=== PATIENT | female | born 1950 | race Caucasian/White ===

== ENCOUNTER 2018-05-13 01:11 | Outpatient (CLI) | payer BC, SELFPAY ==
[2018-05-13 11:41] LABS: ALT 19 U/L (12-78); AST 20 U/L (15-37); Albumin 3.9 g/dL (3.4-5.0); Alkaline Phosphatase 89 U/L (46-116); Anion Gap 6.8 mmol/L (3-11); BUN 12 mg/dL (7-18); Bilirubin, Total 0.4 mg/dL (0.2-1.0); CO2 30.2 mmol/L (21.0-32.0); CREATININE 0.95 mg/dL (0.55-1.02); Chloride 106 mmol/L (98-107); Cholesterol 208 mg/dL (50-200); Estimated GFR 58.85 (mL/min/1.73m2); Glucose 89 mg/dL (70-100); HDL Cholesterol 52 mg/dL (40-60); LDL CHOLESTEROL 139 mg/dL (<100); Potassium 4.9 mmol/L (3.5-5.1); Sodium 143 mmol/L (136-145); Total Protein 7.1 g/dL (6.4-8.2); Triglyceride 123 mg/dL (30-150)
== END 2018-05-13 01:31 ==
DX: I10 Essential (primary) hypertension (principal); E03.9 Hypothyroidism, unspecified; R03.0 Elevated blood-pressure reading, without diagnosis of hypertension; H81.09 Meniere's disease, unspecified ear; Z13.220 Encounter for screening for lipoid disorders
CPT/HCPCS: 36415; 80053; 80061; 83721

== ENCOUNTER 2018-05-19 01:40 | Outpatient (CLI) | payer BC, SELFPAY ==
--- NOTE | 2018-05-19 13:30 | DI.MAMMO_ITS ---
SYMPTOM/DIAGNOSIS: SCREENING, Z12.31 MAMMOGRAMS: Mammograms were interpreted according to the usual protocol including computer analysis with CAD system, tomosynthesis and C view imaging. Comparison is made with exams from [id number]. The breasts are composed of heterogeneously dense fibroglandular tissue. Breast density, Category C. No suspicious masses or suspicious microcalcifications are seen. There has been no significant change. IMPRESSION: Category 1, negative mammogram. Yearly screening mammography is recommended. [facility] ASSESSMENT OF FINDINGS: Negative. Category 1. Patient will receive a letter notifying them of these results. Bi-RADS category C. The breasts are heterogeneously dense, which may obscure small masses.
== END 2018-05-19 02:00 ==
DX: Z12.31 Encounter for screening mammogram for malignant neoplasm of breast (principal)
CPT/HCPCS: 77063; 77067

== ENCOUNTER 2019-05-19 09:38 | Outpatient (CLI) | payer BC, SELFPAY ==
[2019-05-19 13:16] LABS: ALT 27 U/L (14-59); AST 24 U/L (15-37); Alkaline Phosphatase 84 U/L (46-116); Anion Gap 8.1 mmol/L (3-11); BUN 16 mg/dL (7-18); Bilirubin, Total 0.6 mg/dL (0.2-1.0); CO2 28.9 mmol/L (21.0-32.0); CREATININE 0.89 mg/dL (0.55-1.02); Calculated LDL 124 mg/dL (<100); Chloride 103 mmol/L (98-107); Cholesterol 195 mg/dL (<200); Glucose 93 mg/dL (74-106); HDL Cholesterol 48 mg/dL (40-60); Potassium 4.7 mmol/L (3.5-5.1); Sodium 140 mmol/L (136-145); Triglyceride 119 mg/dL (<150)
== END 2019-05-19 09:58 ==
DX: I10 Essential (primary) hypertension (principal); F41.9 Anxiety disorder, unspecified; R10.13 Epigastric pain; R03.0 Elevated blood-pressure reading, without diagnosis of hypertension; C43.9 Malignant melanoma of skin, unspecified
CPT/HCPCS: 36415; 80053; 80061

== ENCOUNTER 2019-08-04 01:33 | Outpatient (CLI) | payer BC, SELFPAY ==
--- NOTE | 2019-08-04 12:55 | DI.MAMMO_ITS ---
EXAM: MG MAMMO SCREENING CLINICAL HISTORY: screening,z12.39 TECHNIQUE: Bilateral full field digital CC and MLO mammographic images were obtained with 3D tomosyn thesis and utilizing computer aided detection (CAD). COMPARISON: Available for comparison. FINDINGS: Masses/Architectural Distortion: None seen. Microcalcifications: No suspicious pleomorphic-type are seen. Skin Thickening/Nipple Retraction: None. IMPRESSION: 1. No significant interval change with no specific features of malignancy noted. 2. Unless there is more urgent need, screening mammography is recommended, as per [employer] guidelines. BI-RADS Category 1 - Negative Breast Density - Category B - Scattered areas of fibroglandular density A negative radiographic report should not delay biopsy if a dominant or clinically suspicious mass is present. Up to ten percent of cancers are not identified on mammography. A negative report may reinforce clinical impression. Adenosis and dense breasts may obscure an underlying neoplasm. False positive reports average 6 to 10%. Patient will receive a letter notifying them of these results.
== END 2019-08-04 01:53 ==
DX: Z12.31 Encounter for screening mammogram for malignant neoplasm of breast (principal)
CPT/HCPCS: 77063; 77067

== ENCOUNTER 2021-04-12 00:52 | Outpatient (CLI) | payer BC, SELFPAY ==
--- NOTE | 2021-04-12 08:15 | DI.MAMMO_ITS ---
Exam(s) MAMMO SCREENING EXAM: MAMMO SCREENING CLINICAL HISTORY: screening,z12.39. TECHNIQUE: Bilateral full field digital CC and MLO mammographic images were obtained with 3D tomosyn thesis and utilizing computer aided detection (CAD). COMPARISON: Prior mammograms were reviewed, the most recent being July 2019. FINDINGS: There are no new spiculated masses nor malignant appearing microcalcification groups. There is no significant architectural distortion nor skin thickening-retraction. IMPRESSION: No radiographic evidence of malignancy. BI-RADS Category 1 - Negative Breast Density - Category B - Scattered areas of fibroglandular density Breast density Category C or D implies that the patient has dense breast tissue. Dense breast tissue can make it harder to find cancer on a mammogram. Dense breast tissue is also associated with an incr eased risk of breast cancer. This information about the result of the mammogram report was provided to the patient to raise their awareness. Use this report when you speak with the patient about their risks for breast cancer, which includes their family history. At that time, you may recommend additional screening tests (Ultrasoun d or MRI) as these tests may add significant information. A negative radiographic report should not delay biopsy if a dominant or clinically suspicious mass is present. Up to ten percent of cancers are not identified on mammography. A negative report may reinforce clinical impression. Adenosis and dense breasts may obscure an underlying neoplasm. False positive reports average 6 to 10%. Patient will receive a letter notifying them of these results.
== END 2021-04-12 01:12 ==
DX: Z12.31 Encounter for screening mammogram for malignant neoplasm of breast (principal)
CPT/HCPCS: 77063; 77067

== ENCOUNTER 2022-04-26 01:12 | Outpatient (CLI) | payer BC, SELFPAY ==
--- NOTE | 2022-04-26 08:15 | DI.DEXA_ITS ---
Exam(s) XR DEXA BONE DENSITY W/WO GARTH EXAM: XR DEXA BONE DENSITY W/WO GARTH CLINICAL HISTORY: screening FOR OSTEOPOROSIS IN POSTMENOPAUSAL WOMAN,Z78.0 TECHNIQUE: Routine DEXA evaluation of the lumbar spine, hip, or forearm. COMPARISON: No exams were available for comparison FINDINGS: Performed on a Hologic unit. Lateral image: No compression fracture evident. Lumbar Spine total T-score: -0.1 Hip total T-score:-0.3 Independent reading at the level of the femoral neck yields T-score of -0.4 Forearm total T-score: -1.4. IMPRESSION: Bone mineral density measures in the osteopenia range. Fracture risk is moderate. Note: Any spine fracture indicates 5x risk for subsequent spine fracture and 2x risk for subsequent h ip fracture. World Health Organization criteria for BMD interpretation classify patients: Normal...... T- Score at or above -1.0 Osteopenic... T- Score between -1.0 and -2.5 Osteoporosis... T-Score at or below -2.5
--- NOTE | 2022-04-26 08:15 | DI.MAMMO_ITS ---
Exam(s) MAMMO SCREENING EXAM: MAMMO SCREENING CLINICAL HISTORY: screening,Z12.39. TECHNIQUE: Bilateral full field digital CC and MLO mammographic images were obtained with 3D tomosyn thesis and utilizing computer aided detection (CAD). COMPARISON: Prior mammograms were reviewed. FINDINGS: There has been no significant change in the appearance and distribution of the fibroglandular tissue. There are no CAD designations. There are no new spiculated masses nor malignant appearing microcalcification groups. There is no significant architectural distortion nor skin thickening-retraction. IMPRESSION: No radiographic evidence of malignancy. BI-RADS Category 1 - Negative Breast Density - Category B - Scattered areas of fibroglandular density Breast density Category C or D implies that the patient has dense breast tissue. Dense breast tissue can make it harder to find cancer on a mammogram. Dense breast tissue is also associated with an incr eased risk of breast cancer. This information about the result of the mammogram report was provided to the patient to raise their awareness. Use this report when you speak with the patient about their risks for breast cancer, which includes their family history. At that time, you may recommend additional screening tests (Ultrasoun d or MRI) as these tests may add significant information. A negative radiographic report should not delay biopsy if a dominant or clinically suspicious mass is present. Up to ten percent of cancers are not identified on mammography. A negative report may reinforce clinical impression. Adenosis and dense breasts may obscure an underlying neoplasm. False positive reports average 6 to 10%. Patient will receive a letter notifying them of these results.
[2022-05-01 15:32] LABS: Hepatitis C Ab w Rflx HCV PCR Negative (Negative)
== END 2022-04-26 01:32 ==
PROVIDERS: PCP Family Medicine; Visit Provider Family Medicine
DX: Z78.0 Asymptomatic menopausal state (principal); Z12.31 Encounter for screening mammogram for malignant neoplasm of breast; Z00.00 Encounter for general adult medical examination without abnormal findings; Z13.820 Encounter for screening for osteoporosis; M85.88 Other specified disorders of bone density and structure, other site
CPT/HCPCS: 36415; 77063; 77067; 77080; 86803

== ENCOUNTER 2023-01-17 10:51 | Outpatient (CLI) | payer MEDICARE, OTHER, SELFPAY ==
[2023-01-17 13:11] LABS: Hemoglobin A1C 5.8 % (<5.7)
[2023-01-17 13:16] LABS: Calculated LDL 159 mg/dL (<100); Cholesterol 242 mg/dL (<200); HDL Cholesterol 65 mg/dL (40-60); Triglyceride 90 mg/dL (<150); Vitamin B12 405 pg/mL (193-986)
== END 2023-01-17 10:52 | disposition home or self-care (01) ==
PROVIDERS: PCP Family Medicine; Visit Provider Family Medicine
DX: E78.5 Hyperlipidemia, unspecified (principal); E11.51 Type 2 diabetes mellitus with diabetic peripheral angiopathy without gangrene; I70.209 Unspecified atherosclerosis of native arteries of extremities, unspecified extremity; D64.9 Anemia, unspecified
CPT/HCPCS: 36415; 80061; 82607; 83036

== ENCOUNTER 2023-05-07 05:07 | Outpatient (CLI) | payer MEDICARE, OTHER, SELFPAY ==
[2023-05-07 12:34] LABS: Calculated LDL 116 mg/dL (<100); Cholesterol 191 mg/dL (<200); Glucose 104 mg/dL (74-106); HDL Cholesterol 64 mg/dL (40-60); Triglyceride 59 mg/dL (<150)
== END 2023-05-07 05:08 | disposition home or self-care (01) ==
LOC: LOS 05:09
PROVIDERS: PCP Family Medicine; Visit Provider Family Medicine
DX: E78.5 Hyperlipidemia, unspecified (principal); R73.9 Hyperglycemia, unspecified
CPT/HCPCS: 36415; 80061; 82947

== ENCOUNTER 2023-05-10 08:34 | Outpatient (CLI) | payer MEDICARE, OTHER, SELFPAY ==
[2023-05-10 09:51] LABS: ESR < 1 mm/hr (0-30)
[2023-05-10 10:08] LABS: TSH (W/Ref FT4) 2.88 uIU/mL (0.36-3.74); Uric Acid 4.2 mg/dL (2.6-6.0)
[2023-05-10 17:20] LABS: Rheumatoid Factor <8.6 IU/mL (<12.0)
[2023-05-10 19:08] LABS: HIV-1/2 Ag & Ab Screen Negative (Negative)
[2023-05-13 13:39] LABS: Albumin 63.6 % (55.8-66.1); Albumin g/dL 4.3 g/dL (3.6-5.2); Total Protein 6.7 g/dL (6.3-8.2)
[2023-05-13 14:07] LABS: SS-A/Ro, IgG <2.3 CU (<20.0); SS-B (La) Ab, IgG <3.3 CU (<20.0)
[2023-05-13 14:26] LABS: Albumin, Urine % 14.6 %; Albumin, Urine mg/dL <1 mg/dL; Globulins, Urine % 85.4 %; Globulins, Urine mg/dL <4 mg/dL; Immunotyping, Urine (See Note); Total Protein Urine <5 mg/dL (See Note)
[2023-05-13 15:22] LABS: ANA Interpretation Negative (Negative)
[2023-05-15 19:52] LABS: Thiamine (Vitamin B1), WB 117 nmol/L (70-180)
[2023-05-17 18:16] LABS: AGNA-1 Negative (Negative); ANNA-1 Negative (Negative); ANNA-2 Negative (Negative); ANNA-3 Negative (Negative); IFA Notes None.; PCA-1 Negative (Negative); PCA-2 Negative (Negative); PCA-Tr Negative (Negative)
== END 2023-05-10 08:35 | disposition home or self-care (01) ==
LOC: LOS 08:34
PROVIDERS: PCP Family Medicine; Referring Provider Family Medicine; Visit Provider Family Medicine
DX: G62.9 Polyneuropathy, unspecified (principal); E03.9 Hypothyroidism, unspecified; Z11.4 Encounter for screening for human immunodeficiency virus [HIV]
CPT/HCPCS: 36415; 84156; 84166; 85652; 86335; 87389; 83519; 83520; 84165; 84182; 84425; 84443; 84550; 86038; 86235; 86256; 86431

== ENCOUNTER 2023-06-14 17:36 | Outpatient (CLI) | payer MEDICARE, OTHER, SELFPAY ==
[2023-06-22 10:18] LABS: AGNA-1 Negative (Negative); ANNA-1 Negative (Negative); ANNA-2 Negative (Negative); ANNA-3 Negative (Negative); IFA Notes None.; PCA-1 Negative (Negative); PCA-2 Negative (Negative); PCA-Tr Negative (Negative)
== END 2023-06-14 17:37 | disposition home or self-care (01) ==
LOC: LBO 17:38
PROVIDERS: PCP Family Medicine; Visit Provider Family Medicine
DX: G62.9 Polyneuropathy, unspecified (principal)
CPT/HCPCS: 36415; 83519; 83520; 86256

== ENCOUNTER → 2023-08-02 00:14 | Outpatient (CLI) | payer MEDICARE, OTHER, SELFPAY ==
--- NOTE | 2023-08-02 06:30 | DI.MRI_ITS ---
Exam(s) MR LUMBAR SPINE WO EXAM: MR LUMBAR SPINE WO CLINICAL HISTORY: chronic low back pain with radiculopathy,spinal stenosis,m48.061,m54.16. TECHNIQUE: Multiplanar multisequence MRI of the Lumbar spine was performed. COMPARISON: MR MRI - LUMBAR SPINE WO CONTRAST from 11/02/2013 CR XR DEXA BONE DENSITY W/WO GARTH from 04/26/2022 FINDINGS: Bones: The last intervertebral disc space is designated the L5/S1 level for the numbering purpose of this examination. The vertebral body heights are well maintained. Alignment is satisfactory. There is a hemangioma or fatty rest in the L4 vertebral body. There are mild degenerative endplate signal changes at L3-L4. Cord: The conus tip ends at the T12 level. It is of normal size and signal intensity. T12-L1: No disc herniations or bulges are present. No central spinal canal or neural foraminal stenos is. L1-2: There is a mild diffuse disc bulge and mild degenerative changes of the facets. There is mild narrowing of the central spinal canal. No significant neural foraminal stenosis. L2-3: There is a diffuse disc bulge. Mild degenerative changes of the facets. There is mild narrowi ng of the central spinal canal. No central spinal canal or neural foraminal stenosis. L3-4: Mild degenerative changes of the facets. No focal disc herniation. Prominent osteophytes are seen on the left. There is mild narrowing of the central spinal canal. There is bstn-ga-nqwnvbzq le ft neural foraminal stenosis. No significant right neural foraminal stenosis. L4-5: Mild diffuse disc bulge. There are degenerative changes of the facets and hypertrophy of the l igamentum flavum. There is mild narrowing of the central spinal canal. Siiy-oy-kldepwye right neura l foraminal narrowing is seen. No significant left neural foraminal stenosis. L5-S1: There is mild prominence of the disc at this level. There are degenerative changes of the fac ets present. There is mild narrowing of the central spinal canal.There is mild bilateral neural fora josie narrowing. Soft tissues: The visualized SI joints and sacrum are well maintained. The paraspinal soft tissues ar e unremarkable. IMPRESSION: Multilevel degenerative changes in the lumbar spine resulting in central spinal canal or neural uziel inal stenosis as described above. DATA REPOSITORY:
== END ==
PROVIDERS: PCP Family Medicine; Visit Provider Family Medicine
DX: M48.061 Spinal stenosis, lumbar region without neurogenic claudication (principal)
CPT/HCPCS: 72148

== ENCOUNTER → 2023-10-28 09:41 | Outpatient (BNVA) | payer MEDICARE, OTHER, SELFPAY | PROVIDERS: PCP Family Medicine; Referring Provider Family Medicine; Visit Provider Psychiatry & Neurology Neurology | DX: G62.9 Polyneuropathy, unspecified (principal) | CPT/HCPCS: 95908; 95923; 99203 ==

== ENCOUNTER 2024-05-22 00:59 | Outpatient (CLI) | payer MEDICARE, OTHER, SELFPAY ==
[2024-05-22 12:28] LABS: Anion Gap 4.8 mmol/L (3-11); BUN 16 mg/dL (7-18); CO2 29.2 mmol/L (21.0-32.0); Calcium 8.9 mg/dL (8.5-10.1); Chloride 104 mmol/L (98-107); Estimated GFR 59.86 (mL/min/1.73m2); Glucose 92 mg/dL (74-106); Potassium 4.7 mmol/L (3.5-5.1); Sodium 138 mmol/L (136-145)
[2024-05-22 12:31] LABS: Hemoglobin A1C 5.9 % (<5.7)
== END 2024-05-22 01:00 | disposition home or self-care (01) ==
LOC: LOS 00:59
PROVIDERS: PCP Family Medicine; Visit Provider Family Medicine
DX: R73.01 Impaired fasting glucose (principal); R73.03 Prediabetes; I10 Essential (primary) hypertension
CPT/HCPCS: 36415; 80048; 83036

== ENCOUNTER 2024-06-03 02:05 | Outpatient (CLI) | payer MEDICARE, OTHER, SELFPAY ==
[2024-06-03] MEDS: Barium Sulfate 2% W/V-Berry Smoothie 450 ML BTL PO ×2 (07:59→08:00)
[2024-06-03 08:17] LABS: Abs Immature Grans 0.01 10^3/uL (0.0-0.06); Absolute Basophil Count 0.06 10^3/uL (0.0-0.2); Absolute Eosinophil Count 0.06 10^3/uL (0.0-0.7); Absolute Lymphocyte Count 1.27 10^3/uL (1.2-3.4); HCT 43.8 % (36.0-46.0); HGB 14.2 g/dL (11.2-15.7); Immature Grans % 0.2 %; Lymphocytes % 21.2 %; MCH 29.2 pg (27.0-33.0); MCHC 32.4 % (32.0-36.0); MCV 90 fL (80-95); MPV 9.4 fL (8.0-11.0); Monocytes % 8.3 %; Neutrophils % 68.3 %; Platelet Count 266 10^3/uL (130-400); RBC 4.87 10^6/uL (3.93-5.22); RDW 13.2 % (11.7-14.6)
[2024-06-03 09:03] LABS: ALT 22 U/L (14-59); AST 22 U/L (15-37); Alkaline Phosphatase 76 U/L (46-116); Anion Gap 8.8 mmol/L (3-11); BUN 16 mg/dL (7-18); Bilirubin, Total 0.8 mg/dL (0.2-1.0); CO2 28.2 mmol/L (21.0-32.0); Calcium 9.1 mg/dL (8.5-10.1); Chloride 102 mmol/L (98-107); Estimated GFR 59.86 (mL/min/1.73m2); Glucose 109 mg/dL (74-106); Potassium 4.7 mmol/L (3.5-5.1); Sodium 139 mmol/L (136-145); TSH (W/Ref FT4) 3.24 uIU/mL (0.36-3.74); Total Protein 7.1 g/dL (6.4-8.2); Vitamin B12 872 pg/mL (193-986)
[2024-06-03] MEDS: Normal Saline - Diluent 50 ML VIAL IJ (09:59)
[2024-06-03] MEDS: Omnipaque 350 MG/ML 100 ML BTL 75 ML IJ (10:00)
[2024-06-03 10:10] LABS: Bilirubin Negative (Negative); Blood Negative (Negative); Clarity Clear (Clear); Glucose Negative (Negative); Ketones Negative (Negative); Leukocyte Esterase Negative (Negative); Nitrite Negative (Negative); Urobilinogen 0.2 mg/dL (Up to 0.2); pH 5.5 (5-8)
--- NOTE | 2024-06-03 10:20 | DI.CT_ITS ---
Exam(s) CT CHEST/ABD/PEL W EXAM: CT CHEST/ABD/PEL W CLINICAL HISTORY: unexplained weight loss,r63.4. TECHNIQUE: Imaging Protocol: Axial computed tomography images with coronal and sagittal reformatted images were created and reviewed. Computer aided detection (CAD) was utilized. CONTRAST MATERIAL: Intravenous: Omnipaque 350 Contrast volume:75 mL Oral: yes / COMPARISON: CR CHEST 2 VIEWS PA,LAT from 04/10/2012 FINDINGS: CHEST: Pulmonary parenchyma: No consolidation. No dominant measurable mass. Pleural thickening calcificat ion noted at the right lung apex. Minimal left apical pleural thickening. Mild scarring posterior r ight upper lobe. Adjacent questioned area of nodularity versus scarring measuring 7 by 3 x 6 millime ters. Tracheobronchial tree: No bronchiectasis. No mucous plugging.No bronchial wall thickening. Pleura: No effusion or pneumothorax. Mediastinum: Within normal limits. Pulmonary arteries: No visible emboli. Cardiovascular: No pericardial effusion. Thoracic aorta non-dilated. Bones: Unremarkable for age. No lytic or blastic lesions.No compression fractures. Soft tissues: Unremarkable. ABDOMEN and PELVIS: Liver: Normal density. No suspicious mass. Gallbladder and biliary tract: No evidence of stones or wall thickening. No biliary dilatation. Pancreas: Normal density, no abnormal calcifications or inflammatory process. Spleen: Normal. Kidneys: Normal size, contour and axis. No radiodense stones. No obstructive uropathy. No suspicious masses seen. Adrenal glands: No masses seen. Aorta: Abdominal portion non-dilated. Lymph nodes: Within normal limits. Soft tissues: Unremarkable. Bladder: Unremarkable. Bowel: No obstruction or bowel wall thickening. Moderate to increased quantity of stool. Peritoneal cavity: No ascites. No focal collection. No mesenteric inflammatory response. No free ai r. Bones: Unremarkable for age. Reproductive organs: Unremarkable for age. IMPRESSION: No acute abnormality in the chest, abdomen or pelvis. 5 millimeter mean diameter nodule versus scarring in the posterior right upper lobe. A follow-up non contrast chest CT could be performed at 6 months. Unexpected findings Additional imaging recommended . RADIATION DOSE DELIVERED: 237.5mGy.cm Total DLP DATA REPOSITORY: All CT scans at this facility are submitted to the National Radiology Data Registry (NRDR) Dose Index Registry (DIR) with the [employer] (ACR). RADIATION OPTIMIZATION: All CT scans at this facility use at least one of these dose optimization te chniques: automated exposure control; mA and/or kV adjustment per patient size (includes targeted exa ms where dose is matched to clinical indication); or iterative reconstruction.
== END 2024-06-03 02:25 ==
LOC: DI 02:05
PROVIDERS: PCP Family Medicine; Visit Provider Family Medicine
DX: R63.4 Abnormal weight loss (principal); Z00.00 Encounter for general adult medical examination without abnormal findings; R30.0 Dysuria; E03.9 Hypothyroidism, unspecified; G62.9 Polyneuropathy, unspecified; R91.8 Other nonspecific abnormal finding of lung field
CPT/HCPCS: 74177; 80053; 71260; 81003; 82607; 84443; 85025; J3490

== ENCOUNTER 2024-06-17 02:11 | Outpatient (CLI) | payer MEDICARE, OTHER, SELFPAY ==
--- NOTE | 2024-06-17 12:55 | DI.MAMMO_ITS ---
Exam(s) MAMMO SCREENING EXAM: MAMMO SCREENING CLINICAL HISTORY: screening,z12.39 TECHNIQUE: Bilateral full field digital CC and MLO mammographic images were obtained with 3D tomosyn thesis and utilizing computer aided detection (CAD). COMPARISON: Available for comparison. FINDINGS: Masses/Architectural Distortion: No suspicious masses are seen. No areas of architectural distortion are present. Microcalcifications: No suspicious pleomorphic-type are seen. Skin Thickening/Nipple Retraction: None. IMPRESSION: 1. No significant interval change with no specific features of malignancy noted. 2. Unless there is more urgent need, screening mammography is recommended, as per [employer] guidelines. BI-RADS Category 1 - Negative Breast Density - Category B - Scattered areas of fibroglandular density Breast density category C or D implies that the patient has dense breast tissue. Dense breast tissue is very common and is not abnormal but dense breast tissue can make it harder to find cancer on a ma mmogram. Also, dense breast tissue may increase their breast cancer risk. This information about the result of the mammogram report was provided to the patient to raise their awareness. Use this report when you speak with the patient about their risks for breast cancer, which includes their family hist ory. At that time, you may recommend for more screening tests (Ultrasound or MRI) as they might be us eful based on their risk. A negative radiographic report should not delay biopsy if a dominant or clinically suspicious mass is present. Up to ten percent of cancers are not identified on mammography. A negative report may reinforce clinical impression. Adenosis and dense breasts may obscure an underlying neoplasm. False positive reports average 6 to 10%. Patient will receive a letter notifying them of these results.
== END 2024-06-17 02:31 ==
LOC: DI 02:11
PROVIDERS: PCP Family Medicine; Visit Provider Family Medicine
DX: Z12.31 Encounter for screening mammogram for malignant neoplasm of breast (principal); R92.323 Mammographic fibroglandular density, bilateral breasts
CPT/HCPCS: 77063; 77067

== ENCOUNTER → 2024-09-03 13:10 | Outpatient (BNVA) | payer MEDICARE, OTHER, SELFPAY | PROVIDERS: PCP Family Medicine; Referring Provider Family Medicine; Visit Provider Physical Therapy Assistant | DX: Z12.11 Encounter for screening for malignant neoplasm of colon (principal) | CPT/HCPCS: S0285 ==

== ENCOUNTER 2024-09-21 10:31 | Day surgery (SDC) | payer MEDICARE, OTHER, SELFPAY ==
[2024-09-21 10:34] VITALS: BP 160/75; PULSE 81; RESP 17; TEMP 36.2; O2SAT 98
[2024-09-21] MEDS: Lactated Ringers 1,000 ML 80 ML IV (11:09)
--- NOTE | 2024-09-21 11:16 | W.ANESPRE ---
General Info Date of Service Date Performed: 09/21/24 Height: 5 ft 7 in Weight: 59 kg Body Mass Index (BMI): 20.3 Surgical Procedure: Operation Date: 09/21/24 10:50 Proposed Procedure Side Surgeon p Isi Grijalva MD Meds Allergies and Home Medications Allergies Allergy/AdvReac Type Severity Reaction Status Date / Time No Known Allergies Allergy Verified 09/21/24 10:52 Home Medication ?Medication ?Instructions ?Recorded B-complex with vitamin C 1 tab PO DAILY 05/27/24 escitalopram oxalate 10 mg tablet 10 mg PO DAILY #90 tab-caps 05/27/24 bisacodyl 5 mg tablet,delayed 5 mg PO ONCE #4 tabs 09/17/24 release (Dulcolax (bisacodyl)) polyethylene glycol 3350 17 17 g PO ONCE #238 grams 09/17/24 gram/dose oral powder Current Visit Medications: Current Medications Generic Name Dose Route Start Last Admin Trade Name Freq PRN Reason Stop Dose Admin Ringer's Solution 1,000 mls @ 80 mls/hr 09/21/24 06:00 09/21/24 11:09 IV 09/21/24 23:59 80 mls/hr INFUSION TIERNEY Administration IV Miscellaneous Supplies 1 each 09/21/24 06:00 Iv Access IV 09/21/24 23:59 DIRECTED TIERNEY Sodium Chloride 0 ml 09/21/24 06:00 Normal Saline Flush 10 Ml Syr IV 09/21/24 23:59 PRN PRN Sodium Chloride 0 ml 09/21/24 06:00 Normal Saline 10 Ml Vial IJ 09/21/24 23:59 DIRECTED PRN Sterile Water 0 ml 09/21/24 06:00 Water,Injection,Sterile 10 Ml Vial IJ 09/21/24 23:59 DIRECTED PRN PFSH Active Problems Active Problems: Problem Status Onset Code Risk for coronary artery disease between 10% and 20% in next 10 years Acute Z91.89 Lung nodule seen on imaging study Acute ~05/2024 R91.1 Osteopenia after menopause Acute M85.80, Z78.0 Unexplained weight loss Acute R63.4 Peripheral neuropathy Acute G62.9 Spinal stenosis of lumbar region with radiculopathy Acute M48.061, M54.16 Prediabetes Acute R73.03 Elevated blood pressure reading without diagnosis of hypertension Acute R03.0 Dry mouth Acute R68.2 Pelvic prolapse Chronic 11/15/14 N81.9 Malignant melanoma of skin Chronic 07/16/07 C43.9 Joint pain Chronic 06/04/13 M25.50 Impacted cerumen of both ears Chronic 11/05/16 H61.23 Epigastric pain Chronic 11/09/14 R10.13 Cancer phobia Chronic 05/10/15 F40.298 Anxiety Chronic F41.9 Medical History Medical History Depression Sciatica Meniere's disease Hyperlipidemia (11/28/12) Surgical History Surgical History Tonsillectomy (~1958) Tobacco Smoking/Tobacco Use Status: Never Passive smoking exposure: Yes (in my childhood home) Second hand exposure: Yes Alcohol Alcohol Intake: current Alcohol intake frequency: 0-2 drinks per day Alcohol type: wine Substance Use Substance use: Never Substance use type: does not use Vital Signs and Lab Results Vital Signs Most Recent Vital Signs in EMR: Most Recent Vital Signs Temp Pulse Resp BP Pulse Ox 36.2 C L 81 17 160/75 H 98 09/21/24 10:34 09/21/24 10:34 09/21/24 10:34 09/21/24 10:34 09/21/24 10:34 Anesthesia Assessment and Plan Anesthesia History Personal History: No History of Anesthesia Complications Family History: No Family History of Anesthesia Complications Exercise Tolerance Exercise Tolerance: Metabolic Equivalents>4 Pertinent Negatives Pertinent Negatives: No Symptoms of GERD, No Major Cardiovascular Symptoms or Complaints and No Major Pulmonary Symptoms or Complaints Cardiac & Pulmonary Exam Cardiac Exam: Normal S1/S2 Heart Sounds Pulmonary Exam: Clear Bilateral Breath Sounds Implantable Cardiac Device Does patient have a Pacemaker or an ICD?: No Airway Exam Known Difficult Airway: No Mallampati Class: 2 Mouth Opening: Normal (> 3cm) Thyromental Distance: Greater than 3 cm Neck Range of Motion: Full ROM Neck Circumference: Normal Teeth Condition: Normal Dentition (Significant overbite) ASA Classification ASA Score: ASA 2 Emergency Case?: No NPO Status NPO Status: NPO Clears >2 hours, Solids >8 hours Anesthesia Plan Resuscitation Status: Full Code Anesthesia Technique: General Anesthesia Airway Planned: Natural Airway Monitors Used: Standard Monitors
[2024-09-21 11:18] VITALS: BMI 20.3
--- NOTE | 2024-09-21 11:58 | COLE_ITS ---
Date of service: 09/21/24 Time of Service: 11:58 Colonoscopy Report Procedure Description: PROCEDURES PERFORMED: 1. Colonoscopy PREOPERATIVE DIAGNOSIS: Surveillance colonoscopy POSTOPERATIVE DIAGNOSIS: Normal colon SURGEON: Clement Grijalva MD INDICATION FOR PROCEDURE: the patient is a 74-year-old woman due for surveillance colonoscopy. Last colonoscopy was 10 years ago and was normal. No family history of colon cancer. She reports that over the last a while she manzanares s noticed more frequent bowel movements and they are thinner than they used to be. FINDINGS: Normal terminal ileum. Normal colon. Normal rectum. No polyps. No diverticular disease. No inflammation. No hemorrhoid disease. SURVEILLANCE interval/FOLLOW-UP: 10 years SPECIMENS: None EBL: Minimal COMPLICATIONS: None QUALITY of prep: Excellent Procedure in detail: The patient gave written consent and was in agreement with the indications, the potential risks as well as the benefits of the procedure. They were taken to the endoscopy suite and laid in the left lateral decubitus position. A timeout was performed and anesthesia was administered which was tolerated well. I started the procedure. Digital rectal and visual examination was performed and grossly within normal limits. A well-lubricated flexible colonoscope was then introduced and passed without any notable difficulty all the way to the cecum identified by the ileocecal valve and the appendiceal orifice. The terminal ileum was deeply intubated and looked normal. The scope was then slowly withdrawn with the above-noted findings. The patient tolerated the procedure well and was taken to the PACU in hemodynamically stable condition.
--- NOTE | 2024-09-21 11:59 | W.PM.DSUDISC ---
Date of service: 09/21/24 Discharge Plan Disposition Patient Disposition: Home Condition: Good Discharge Details Attending Provider: Chivo Grijalva Primary Care Provider: Kathi Brody Home Meds and New Rx's Prescriptions: No Action B-complex with vitamin C Tablet Extended Release 1 tab PO DAILY escitalopram oxalate 10 mg tablet 10 mg PO DAILY Qty: 90 3RF bisacodyl [Dulcolax (bisacodyl)] 5 mg tablet,delayed release (DR/EC) 5 mg PO ONCE Qty: 4 0RF Rx Instructions: Take per colonoscopy instructions provided by ordering providers office polyethylene glycol 3350 17 gram/dose powder 17 g PO ONCE Qty: 238 0RF Rx Instructions: Take per colonoscopy instructions provided by ordering providers office Discharge Instructions Additional Instructions: FINDINGS: No concerning findings. No polyps. No inflammation anywhere. You are healthy on the inside. Repeat a colonoscopy in 10 years. Stand Alone Forms: Anesthesia Discharge Inst., Colonoscopy Post Instructions, Álvaro Mendez ([facility]U) Activity:: Activity as Tolerated Diet:: As Tolerated Discharge Orders Discharge Orders: Discharge Order (Routine); Ordered 09/21/24 Ordered By: Chivo Grijalva
[2024-09-21 12:35] VITALS: BP 103/64; PULSE 74; RESP 17; TEMP 36.3; O2SAT 98
--- NOTE | 2024-09-21 12:40 | W.ANESPOSTOP ---
Postoperative Evaluation Date, Time and Location Date Performed: 09/21/24 Time Performed: 12:40 Patient Location: Day Surgery Unit Vital Signs Most Recent Imported Vital Signs: Most Recent Vital Signs Temp Pulse Resp BP Pulse Ox 36.2 C L 81 17 160/75 H 98 09/21/24 10:34 09/21/24 10:34 09/21/24 10:34 09/21/24 10:34 09/21/24 10:34 Assessment Mental Status: Awake (Alert & Oriented to Patient Baseline) Airway and Respiratory Function: Patent airway with normal (patient baseline) respiratory exam Cardiovascular Function: Hemodynamically Stable Hydration Status: Adequately Hydrated Nausea & Vomiting: No Nausea or Vomiting Pain: Pt. Denies Any Pain Peripheral Nerve Block: Patient did not receive a nerve block
[2024-09-21 13:00] VITALS: BP 139/76; PULSE 64; RESP 17; TEMP 36.3; O2SAT 100
== END 2024-09-21 13:16 | disposition home or self-care (01) ==
LOC: SUR 10:31
PROVIDERS: PCP Family Medicine; Visit Provider Student in an Organized Health Care Education/Training Program
PROC: 0DJD8ZZ Inspection of Lower Intestinal Tract, Via Natural or Artificial Opening Endoscopic (ICD-10-PCS; CPT 45378; principal; 2024-09-21 10:45)
DX: Z12.11 Encounter for screening for malignant neoplasm of colon (principal)
CPT/HCPCS: G0121; J2003; J2704

== ENCOUNTER 2024-11-30 00:23 | Outpatient (CLI) | payer MEDICARE, OTHER, SELFPAY ==
--- NOTE | 2024-11-30 05:15 | DI.CT_ITS ---
Exam(s) CT CHEST WO EXAM: CT CHEST WO CLINICAL HISTORY: f/u lung nodule,r91.1. TECHNIQUE: Imaging protocol: Axial computed tomography images were obtained and coronal and sagittal reformatted images were created and reviewed. Lung Computer Aided Detection (CAD) was utilized. COMPARISON: CT CT CHEST/ABD/PEL W from 06/03/2024 FINDINGS: Tracheobronchial tree: Patent where visualized. No bronchiectasis is present. Pulmonary parenchyma: There is stable scarring in the lung apices, right greater than left. There is a persistent 5 mm area of nodularity in the posterior aspect of the right upper lobe (series 2, image 45). There are no new pulmonary nodules. There are no focal consolidating infiltrates present. Mediastinum and Nora: No dominant adenopathy or fluid collection. The esophagus is unremarkable. Thyroid gland: Unremarkable. Pleura: No effusion or pneumothorax. Heart: The heart is not dilated. No coronary artery calcifications are seen. There is a trace pericardial effusion present. Aorta: Thoracic aorta non-dilated. Mild atherosclerotic calcification is present. Upper abdomen: Unremarkable. Lymph nodes: Within normal limits. Soft tissues: Unremarkable. Bones:Within normal limits for the patient's age. IMPRESSION: 1. Stable 5 mm right upper lobe pulmonary nodule. Solid nodules smaller than 6 mm do not require routine follow-up in all patients with high clinical risk; however, some nodules smaller than 6 mm with suspicious morphology, upper lobe location, or both may warrant follow-up at 12 months (grade 2A; weak recommendation, high-quality evidence). (Kamron et al., 2017) Single solid noncalcified nodules. ???Solid nodules smaller than 6 mm (those 5 mm or smaller) do not require routine follow-up in patients at low risk (grade 1C; strong recommendation, low- or [id number] evidence). (Kamron et al., 2017) 2. No focal consolidating infiltrates are present. RADIATION DOSE DELIVERED: 156.45mGy.cm Total DLP 156.45mGy.cm Total DLP DATA REPOSITORY: All CT scans at this facility are submitted to the National Radiology Data Registry (NRDR) Dose Index Registry (DIR) with the [employer] (ACR). RADIATION OPTIMIZATION: All CT scans at this facility use at least one of these dose optimization techniques: automated exposure control; mA and/or kV adjustment per patient size (includes targeted exams where dose is matched to clinical indication); or iterative reconstruction.
== END 2024-11-30 00:43 ==
LOC: DI 00:23
PROVIDERS: PCP Family Medicine; Visit Provider Family Medicine
DX: R91.1 Solitary pulmonary nodule (principal)
CPT/HCPCS: 71250

== ENCOUNTER 2024-11-30 09:09 | Outpatient (CLI) | payer MEDICARE, OTHER, SELFPAY | END 2024-11-30 09:10 | disposition home or self-care (01) | LOC: LBO 09:10 | PROVIDERS: PCP Family Medicine; Visit Provider Family Medicine | DX: Z91.89 Other specified personal risk factors, not elsewhere classified (principal); E78.5 Hyperlipidemia, unspecified; R03.0 Elevated blood-pressure reading, without diagnosis of hypertension | CPT/HCPCS: 36415; 71250; 83695 ==